=== PATIENT | male | born 1945 | race Caucasian/White ===

== ENCOUNTER 2018-03-27 06:52 | Day surgery (SDC) | payer MEDICARE, OTHER, SELFPAY ==
[2018-03-21 07:57] VITALS: BMI 28.3
[2018-03-27] VITALS (8 sets, daily range): BP systolic 110–139; BP diastolic 70–91; PULSE 64–89; RESP 9–18; TEMP 36.2–36.4; O2SAT 97–100; BMI 29.0
--- NOTE | 2018-03-27 | PATH_ITS ---
[facility] Accession Number: [id number] . 01 Material submitted: . LEFT CHEST WALL MASS . 02 Diagnosis: Left Chest Wall Mass, Excision: Mature adipose tissue, consistent with lipoma. Negative for malignancy. MRV/03/29/2018 . 02 Electronically signed: . Judah Maloney MD, PhD, Pathologist NPI- [id number] . 01 Gross description: . Received in formalin, labeled left chest wall mass, is a piece of bright yellow-orange rubbery adipose tissue (13.2 x 6.5 x 3.5 cm) with a homogeneous unremarkable cut surface. The tissue is inked black. [employer] tissue is submitted in cassettes A1-A3. ([id number]) /MRV . 02 Pathologist provided ICD-10: D17.9 . 02 CPT . 371986 Performed at: 01 [facility] [address] [place] [address], [place], [place] [id number] MD Anthony Salgado MD Phone: [phone] Performed at: [facility] [address] [place], [place] [id number] MD David Brumfield MD Phone: [phone]
[2018-03-27] MEDS: LACTATED RINGERS 1,000 ML 42 ML IV (07:35)
[2018-03-27] MEDS: CEFAZOLIN 2 GM/100 ML FROZ.PIGGY IV (07:44)
--- NOTE | 2018-03-27 07:47 | PM.PREOP ---
Pre-operative Note Interval Note Pre-op Check: Yes History & Physical Reviewed by Physician and Yes Exam Performed Changes: No H&P completed within 30 days and has changed as indicated here:: Patient seen and examined in the preoperative area. Surgical site marked. History physical examination dated March 08, 2018 has not changed and is placed on the chart. We will proceed with excision of left lateral chest wall lipoma as planned today.
--- NOTE | 2018-03-27 08:38 | SUR.OPER ---
lOCAL 20 ML 0.25% BUPIVICAINE AND 20ML 1% LIDOCAINE WITH EPI WOUND INFILTRATE
--- NOTE | 2018-03-27 08:57 | PM.OP.1 ---
Operative Date/Time/Diagnoses Date of procedure: 03/27/18 Time of procedure: 08:57 Pre-op diagnosis: Symptomatic left chest wall mass Post-op diagnosis: other (Symptomatic lipoma left chest wall measuring 10 x 8 x 4 cm) Procedure & Clinicians Procedure: Excision of left chest wall lipoma measuring 10 x 8 x 4 cm Same procedure as scheduled: Yes Indications: 73-year-old male with slowly enlarging painful mass in the subcutaneous region of the left lateral chest wall just below the axilla. Given his symptoms excision was recommended. Surgeon: Solomon Monteiro Click Yes if Unassisted: Yes Anesthesia Type: General Operative Notes Findings: 1. Multilobulated well encapsulated mass with the above dimensions extending between the latissimus dorsi and serratus anterior muscles 2. No evidence of any other residual masses or abnormalities within the area. Closure Type: primary Specimen(s): other (Left chest wall mass) Implants & Drains: Size 15 Zak drain in the left chest wall subcutaneous cavity placed to bulb suction Applied: drain(s) (See above) Estimated Blood Loss (mL): 5 Blood products transfused: none Procedure in detail: After obtaining informed consent the patient was brought to the operating room and placed supine on the table. After satisfactory induction of anesthesia he was placed in a right lateral decubitus position. All pressure points were padded appropriately. SCOAP time out was performed per standard protocol. Left chest wall was prepped and draped in usual sterile fashion. Transverse incision was designed over the palpable mass and injected with a one-to-one mixture of 1% lidocaine with 1 100,000 epinephrine and 0.5% plain Marcaine for postoperative analgesia. Skin incision was created with a 10 scalpel blade. Bovie was used to achieve hemostasis and carried the dissection through the subcutaneous tissue. Capsule of the mass was then immediately encountered. Combination of sharp and blunt dissection liberated the mass from surrounding tissue. Again, the mass was noted to be welling capsulated with multiple lobulations. Mass was completely liberated and hemostasis achieved with the Bovie. Specimen was sent for permanent section. Wound was irrigated with copious amounts of sterile saline solution and hemostasis was verified. Palpation revealed no other masses or abnormalities. Drain was brought through a separate stab incision inferiorly from the wound and secured to the skin with a 3 0 nylon stitch. Subcutaneous tissue was reapproximated with interrupted 3 0 Vicryl suture. Skin was closed with a running subcuticular 4 O Monocryl suture. Dermal adhesive was placed on the incision. Gauze and tape were placed over the drain site. Drain was placed to bulb suction. Patient was replaced in supine position and anesthesia reversed. Patient extubated in the operating room. He was taken recovery stable condition. Complications: none Condition: stable Disposition: PACU Plan for aftercare: 1. Discharge to home 2. Follow up in surgery Clinic for possible drain removal in 1 week
[2018-03-27] MEDS: BUPIVACAINE 0.25% (PF) VIAL 30 ML INJ (08:58)
[2018-03-27] MEDS: LIDOCAINE 1% W/EPI INJ 20 ML INJ (08:59)
[2018-03-27] MEDS: OXYCODONE/ACETAMINOPHEN 5/325 TABLET 1 TAB PO (09:54)
== END 2018-03-27 10:04 | disposition home or self-care (01) ==
PROVIDERS: Visit Provider Surgery
PROC: (CPT 21552; principal; 2018-03-27 07:45)
DX: D17.1 Benign lipomatous neoplasm of skin and subcutaneous tissue of trunk (principal); R07.89 Other chest pain; I10 Essential (primary) hypertension; E78.5 Hyperlipidemia, unspecified
CPT/HCPCS: 21552; 11406; 88304; J0690; J1100; J2405; J2704; J3010

== ENCOUNTER → 2019-04-15 10:21 | Outpatient (CLI) | payer MEDICARE, OTHER, SELFPAY ==
--- NOTE | 2019-04-15 | DI.RAD.S_ITS ---
PROCEDURE: XR TOE LT MIN 2V INDICATIONS: Contusion of left great toe without damage to nail, initial TECHNIQUE: 3 views of the left toe(s) acquired. COMPARISON: None. FINDINGS: Bones: Incomplete nondisplaced fracture of the distal phalanx of the great toe seen on one image only. Soft tissues: Associated soft tissue swelling IMPRESSION: Incomplete nondisplaced fracture involving the great toe distal phalanx. Dictated by: Rodrick Banks M.D. on 04/15/2019 at 14:24 Approved by: Rodrick Banks M.D. on 04/15/2019 at 14:27
== END ==
PROVIDERS: PCP Internal Medicine; Visit Provider Internal Medicine
DX: S92.425A Nondisplaced fracture of distal phalanx of left great toe, initial encounter for closed fracture (principal); X58.XXXA Exposure to other specified factors, initial encounter
CPT/HCPCS: 73660

== ENCOUNTER → 2020-05-22 19:43 | Outpatient (ROUT) | payer MEDICARE, OTHER, SELFPAY ==
[2020-05-22 19:58] LABS: Add Manual Diff / Slide Review NO; Basophils Absolute Auto 0 /uL (0-100); Basophils Percent Auto 0.4 % (0-2); Eosinophils Absolute Auto 100 /uL (0-450); Eosinophils Percent Auto 1.9 % (2-4); Hematocrit 41.5 % (41-53); Hemoglobin 14.2 g/dL (13.5-17.5); Lymphocytes Absolute Auto 800 /uL (1100-4500); Lymphocytes Percent Auto 20.3 % (25-40); Mean Corpuscular HGB Conc 34.3 % (30-36); Mean Corpuscular Hemoglobin 32.3 PG (26-34); Mean Corpuscular Volume 94.2 fL (80-100); Monocytes Absolute Auto 400 /uL (0-900); Monocytes Percent Auto 9.7 % (3-14); Neutrophils Absolute Auto 2600 /uL (1500-7000); Neutrophils Percent Auto 67.7 % (50-75); Platelet Count 290 X10^3/uL (150-400); Red Blood Cell Count 4.41 X10^6/uL (4.5-5.9); Red Cell Distribution Width 12.6 % (11.6-14.8); White Blood Cell Count 3.8 X10^3/uL (4.5-11.0)
[2020-05-22 20:05] LABS: Aspartate Aminotransferase 24 IU/L (17-59); BUN Creatinine Ratio 23.5 (6-22); Blood Urea Nitrogen 19 mg/dL (9-20); Calcium 9.8 mg/dL (8.4-10.2); Carbon Dioxide 29 mmol/L (22-32); Chloride 103 mmol/L (98-107); Cholesterol 146 mg/dL (140-199); Estimated Glomerular Filt Rate > 60.0 mL/min (>60); Glucose 101 mg/dL (80-110); HDL Cholesterol 69 mg/dL (40-60); HEMOLYSIS < 15 (0-50); LDL Cholesterol Calculated 69 mg/dL (<100); Potassium 4.5 mmol/L (3.4-5.1); Sodium 136 mmol/L (137-145); Triglycerides 39 mg/dL (35-150)
[2020-05-22 20:36] LABS: Prostate Specific Antigen 1.08 ng/mL (0.10-4.00)
== END ==
PROVIDERS: PCP Internal Medicine; Visit Provider Internal Medicine
DX: I10 Essential (primary) hypertension (principal); E78.2 Mixed hyperlipidemia; N40.0 Benign prostatic hyperplasia without lower urinary tract symptoms; R53.83 Other fatigue
CPT/HCPCS: 80048; 80061; 84153; 84443; 84450; 85025

== ENCOUNTER 2022-01-17 12:03 | Emergency (ER) | payer MEDICARE, BC, SELFPAY | END 2022-01-17 12:20 | disposition left against medical advice (07) | PROVIDERS: Emergency Provider Emergency Medicine; PCP Internal Medicine ==

== ENCOUNTER → 2022-02-02 07:00 | Outpatient (CLI) | payer MEDICARE, BC, SELFPAY ==
[2022-02-02 07:44] LABS: Hematocrit 37.5 % (41-53); Hemoglobin 13.4 g/dL (13.5-17.5); Mean Corpuscular HGB Conc 35.7 % (30-36); Mean Corpuscular Hemoglobin 33.3 PG (26-34); Mean Corpuscular Volume 93.3 fL (80-100); Platelet Count 292 X10^3/uL (150-400); Red Blood Cell Count 4.02 X10^6/uL (4.5-5.9); Red Cell Distribution Width 12.6 % (11.6-14.8); White Blood Cell Count 3.4 X10^3/uL (4.5-11.0)
[2022-02-02 09:37] LABS: Alanine Aminotransferase 14 IU/L (<50); Albumin 4.1 g/dL (3.5-5.0); Albumin Globulin Ratio 1.6 (1.0-2.8); Alkaline Phosphatase 44 U/L (38-126); Aspartate Aminotransferase 24 IU/L (17-59); BUN Creatinine Ratio 23.3 (6-22); Bilirubin Total 0.6 mg/dL (0.2-1.3); Blood Urea Nitrogen 20 mg/dL (9-20); Calcium 9.2 mg/dL (8.4-10.2); Carbon Dioxide 28 mmol/L (22-32); Chloride 98 mmol/L (98-107); Cholesterol 133 mg/dL (140-199); Estimated Glomerular Filt Rate > 60 mL/min (>60); Globulin 2.5 g/dL (1.7-4.1); Glucose 87 mg/dL (80-110); HDL Cholesterol 66 mg/dL (40-60); HEMOLYSIS < 15 (0-50); LDL Cholesterol Calculated 60 mg/dL (<100); Potassium 4.8 mmol/L (3.4-5.1); Sodium 132 mmol/L (137-145); Total Protein 6.6 g/dL (6.3-8.2); Triglycerides 34 mg/dL (35-150)
[2022-02-02 10:05] LABS: Prostate Specific Antigen 1.49 ng/mL (0.10-4.00)
[2022-02-02 10:07] LABS: TSH w/ Reflex to FT4 1.02 uIU/mL (0.47-4.68)
== END ==
PROVIDERS: PCP Internal Medicine; Referring Provider Internal Medicine; Visit Provider Internal Medicine
DX: E78.2 Mixed hyperlipidemia (principal); I10 Essential (primary) hypertension; N40.1 Benign prostatic hyperplasia with lower urinary tract symptoms; N13.8 Other obstructive and reflux uropathy; U07.1 COVID-19
CPT/HCPCS: 36415; 80053; 80061; 84153; 84443; 85027

== ENCOUNTER → 2023-01-06 16:50 | Outpatient (CLI) | payer MEDICARE, BC, SELFPAY ==
[2023-01-06 17:09] LABS: Add Manual Diff / Slide Review NO; Basophils Absolute Auto 100 /uL (0-100); Basophils Percent Auto 1.2 % (0-2); Eosinophils Absolute Auto 100 /uL (0-450); Eosinophils Percent Auto 3.1 % (2-4); Hematocrit 36.8 % (41-53); Lymphocytes Absolute Auto 900 /uL (1100-4500); Mean Corpuscular HGB Conc 35.4 % (30-36); Mean Corpuscular Hemoglobin 32.8 PG (26-34); Mean Corpuscular Volume 92.7 fL (80-100); Monocytes Absolute Auto 400 /uL (0-900); Monocytes Percent Auto 9.5 % (3-14); Neutrophils Absolute Auto 3200 /uL (1500-7000); Neutrophils Percent Auto 67.2 % (50-75); Platelet Count 246 X10^3/uL (150-400); Red Blood Cell Count 3.97 X10^6/uL (4.5-5.9); Red Cell Distribution Width 12.7 % (11.6-14.8); White Blood Cell Count 4.7 X10^3/uL (4.5-11.0)
[2023-01-06 17:24] LABS: Alanine Aminotransferase 22 IU/L (<50); Albumin 4.3 g/dL (3.5-5.0); Albumin Globulin Ratio 1.5 (1.0-2.8); Alkaline Phosphatase 49 U/L (38-126); Aspartate Aminotransferase 27 IU/L (17-59); BUN Creatinine Ratio 18.3 (6-22); Bilirubin Total 0.8 mg/dL (0.2-1.3); Blood Urea Nitrogen 15 mg/dL (9-20); Calcium 9.4 mg/dL (8.4-10.2); Carbon Dioxide 28 mmol/L (22-32); Chloride 100 mmol/L (98-107); Cholesterol 141 mg/dL (140-199); Estimated Glomerular Filt Rate > 60 mL/min (>60); Globulin 2.8 g/dL (1.7-4.1); Glucose 93 mg/dL (80-110); HDL Cholesterol 79 mg/dL (40-60); HEMOLYSIS < 15 (0-50); LDL Cholesterol Calculated 53 mg/dL (<100); Potassium 4.4 mmol/L (3.4-5.1); Sodium 134 mmol/L (137-145); Total Protein 7.1 g/dL (6.3-8.2); Triglycerides 47 mg/dL (35-150)
[2023-01-06 17:52] LABS: Prostate Specific Antigen 1.18 ng/mL (0.10-4.00)
== END ==
PROVIDERS: PCP Internal Medicine; Referring Provider Internal Medicine; Visit Provider Internal Medicine
DX: E78.2 Mixed hyperlipidemia (principal); I10 Essential (primary) hypertension; N40.1 Benign prostatic hyperplasia with lower urinary tract symptoms; N13.8 Other obstructive and reflux uropathy
CPT/HCPCS: 36415; 80053; 80061; 84153; 85025

== ENCOUNTER → 2023-02-20 12:10 | Outpatient (CLI) | payer MEDICARE, BC, SELFPAY ==
[2023-02-20 12:30] LABS: Mean Corpuscular HGB Conc 35.1 % (30-36); Mean Corpuscular Hemoglobin 32.4 PG (26-34); Mean Corpuscular Volume 92.1 fL (80-100); Platelet Count 278 X10^3/uL (150-400); Red Blood Cell Count 4.02 X10^6/uL (4.5-5.9); Red Cell Distribution Width 12.6 % (11.6-14.8); White Blood Cell Count 4.3 X10^3/uL (4.5-11.0)
[2023-02-20 13:02] LABS: HEMOLYSIS < 15 (0-50); Iron 120 ug/dL (49-181)
[2023-02-20 13:08] LABS: Appearance Urine UA CLEAR; Bilirubin Urine UA NEGATIVE (NEGATIVE); Color Urine UA YELLOW; Glucose Urine UA NEGATIVE (Negative); Ketones Urine UA NEGATIVE (NEGATIVE); Leukocyte Esterase Urine UA NEGATIVE (NEGATIVE); Nitrite Urine UA NEGATIVE (Negative); Occult Blood Urine UA NEGATIVE (Negative); Protein Urine UA NEGATIVE (Negative); Specific Gravity Urine UA 1.015 (1.000-1.035); Urobilinogen Urine UA 0.2 E.U./dL (0.2)
[2023-02-20 13:14] LABS: Percent Iron Saturation 41 % (20-50); Total Iron Binding Capacity 296 ug/dL (261-462); Transferrin 200 mg/dL (206-381)
[2023-02-20 13:17] LABS: Bacteria Urine None Seen; Culture Indicated Urine Cult Not Indicated; RBC Urine None Seen (0-5/HPF); Squamous Epithelial Cell Urine None Seen (0-5/HPF); Urine Comments Microscopic Normal; WBC Urine None Seen (0-5/HPF)
[2023-02-20 13:56] LABS: Vitamin B12 849 pg/mL (239-931)
[2023-02-20 20:09] LABS: Ferritin 303 ng/mL (18-464)
== END ==
PROVIDERS: PCP Internal Medicine; Referring Provider Internal Medicine; Visit Provider Internal Medicine
DX: D64.9 Anemia, unspecified (principal); E53.8 Deficiency of other specified B group vitamins; N13.8 Other obstructive and reflux uropathy; N40.1 Benign prostatic hyperplasia with lower urinary tract symptoms
CPT/HCPCS: 36415; 81001; 82607; 82728; 83540; 83550; 85027